=== PATIENT | female | born 1995 | race African-American/Black ===

== ENCOUNTER 2018-10-14 14:50 | Inpatient (IN) | payer OTHER ==
[2018-10-14] VITALS (29 sets, daily range): BP systolic 120–164; BP diastolic 70–102
[~2018-10-14] VITALS: Ht 170.2 cm; Wt 89.1 kg
[2018-10-14] MEDS ORDERED: PRENTAB9 PO (15:13)
[2018-10-14] MEDS: LR 1,000 ML IV SCH ×3 (16:06→23:42)
[2018-10-14] MEDS ORDERED: LR 1,000 ML IV SCH (16:06)
[2018-10-14] MEDS ORDERED: LACTATED RINGER'S 1000 ML IV STA (16:06)
[2018-10-14] MEDS ORDERED: OXYTOCIN DRIP 30 UNITS in APPROPRIATE DILUENT 1 EA IV SCH (16:15)
--- NOTE | 2018-10-14 16:31 | HPEPDOC ---
Obstetrical History & Physical General Date of Admission Oct 14, 2018 at 14:51 History of Present Illness 22 y/o at 39+2 with newly dx'd Pre-E today. 24 hr UP showed 754 mg. [place] thiago BP's noted 24 and 28JAN. Preg uncomplicated. Pos FM. Not feeling any ctx's. No GASTON/vis changes/upper abdom pain. 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: No pertinent history Past Medical History Medical History denies Surgical History: [place] teeth Family History Significant Family History: No pertinent family hx Social History Marital Status: Family situation: Spouse/partner home Psychosocial History: No pertinent psych hx * Smoker: non-smoker Alcohol: Denies Drugs: denies Abuse Violence Screening Have you been hit/kicked/slapp: No Have you been sexually assault: No Imunizations Tdap status: current Influenza Status: current Allergies Coded Allergies: No Known Allergies (Unverified , 10/14/18) Medications Scheduled Multivitamins/ ( 27-0.8 mg) 1 Tab Tab, 1 TAB PO DAILY Physical Examination Physical Examination GENERAL: Alert and oriented times three ABDOMEN: Gravid and non-tender to touch. FETUS: Is vertex (VTX) by sterile vaginal examination (SVE), Cx FT/50/high/vtx ballotable EXTREMITIES: No edema. Vital Signs/I&O Vital Signs Date Time Temp Pulse Resp B/P (MAP) Pulse Ox O2 Delivery O2 Flow Rate FiO2 10/14/18 15:38 60 144/89 (107) 10/14/18 15:09 97.9 18 Room Air Laboratory Data 24H LABS Laboratory Tests 2 10/14/18 15:03: Serology Scanned Report Hepatitis B Testing Urine Culture: No Growth Pertinent Laboratoy Data Blood Type: O+ RBC Antibody Screen: Negative HIV: Negative Hepatitis B: Negative Hepatitis C: Unknown Rapid Plasma Reagin: Nonreactive Rubella: Immune Varicella: Immune Chlamydia/Gonorrhea: Negative Group B Streptococcus: Negative Quad Screen Test: Declined Cystic Fibrosis: Negative Anatomy Ultrasound Placenta Location: Anterior Normal Anatomy: Yes Placenta Previa: No Assessment Variability: Moderate Accelerations: Positive Decelerations: None Tocometer Contractions: Yes Frequency: regular Duration: greater than 60 seconds Strength: palpated as mild Assessment/Plan Assessment Term, pre-e, no severe features. Unfav cx, however stefanie too much to give miso. Also, a FB would not fit as of yet. Only option is pitocin. Plan Admit and orient. 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 Diet: clears Group B Streptococcus (GBS) neg Labs and intravenous (IV) per unit protocol. Counseled on Pitocin and induction of labor (IOL). Lactated Ringers (LR): Bolus 1000 mL prior to epidural, then at 125 mL/hr. Anticipate normal spontaneous delivery () C-S as appropriate. Sessions SESSIONS,KAVITA Kinsey MD Oct 14, 2018 16:31
[2018-10-14 16:39] LABS: HEMATOCRIT 36.2 % (36.0-47.0); MEAN CORPUSCULAR HEMOGLOBIN 28.9 pg (27.0-33.0); MEAN CORPUSCULAR HGB CONC 33.1 g/dl (32.0-36.5); MEAN CORPUSCULAR VOLUME 87.2 fl (80.0-96.0); PLATELET COUNT, AUTOMATED 231 10^3/uL (150-450); RED BLOOD COUNT 4.15 10^6/uL (4.00-5.40); WHITE BLOOD COUNT 10.2 10^3/uL (4.0-10.0)
[2018-10-14 17:00] LABS: ALT/SGPT 25 U/L (12-78); BILIRUBIN,TOTAL 0.1 MG/DL (0.2-1.0); CREATININE FOR GFR 0.85 MG/DL (0.55-1.30); GLOMERULAR FILTRATION RATE > 60.0 (>60); LDH LACTATE DEHYDROGENASE 231 U/L (84-246); URIC ACID 4.6 MG/DL (2.6-6.0)
[2018-10-14] MEDS ORDERED: NIFEdipine 10 MG CAP PO STA (18:50)
[2018-10-14] MEDS ORDERED: NIFEdipine 10 MG CAP As Ordered ONE (18:53)
--- NOTE | 2018-10-14 21:33 | IPNPDOC ---
Text Note Date of Service The patient was seen on 10/14/18. NOTE Has required a single dose of Nifedipine 10 mg for BP control. Mild range for several hours since. Nl serum labs. NST Cat 2 with intermittent lates but mod josé antonio and pos accels throughout, reg ctx's that she is now feeling 4/10, pit at 2 mu/min Cx 60/-3/mid/vtx well applied, Cook balloon 60 Ut/40 Vag placed w/o difficulty Plan on recheck 1-2 hrs after Cook come out. Epidural on demand, prefer to wait until active labor. Pt states no questions after disc of plan. Sessions VS,Yamileth, I+O VS, Yamileth I+O Laboratory Tests 10/14/18 16:25 Aspartate Amino Transf (AST/SGOT) 16, Alanine Aminotransferase (ALT/SGPT) 25, La ctate Dehydrogenase 231, Total Bilirubin 0.1 L, Uric Acid 4.6 10/14/18 16:26 Red Blood Count 4.15, Mean Corpuscular Volume 87.2, Mean Corpuscular Hemoglobin 28.9, Mean Corpuscular Hemoglobin Concent 33.1, Red Cell Distribution Width 13.6 Vital Signs Date Time Temp Pulse Resp B/P (MAP) Pulse Ox O2 Delivery O2 Flow Rate FiO2 10/14/18 20:32 56 18 131/83 (99) 10/14/18 19:16 98.1 10/14/18 15:09 Room Air SESSIONS,KAVITA Kinsey MD Oct 14, 2018 21:33
[2018-10-15] VITALS (69 sets, daily range): BP systolic 101–170; BP diastolic 57–98
[2018-10-15] MEDS: LR 1,000 ML IV SCH ×3 (04:03→17:13)
[2018-10-15 05:36] LABS: HEMATOCRIT 34.3 % (36.0-47.0); HEMOGLOBIN 11.3 g/dl (12.0-15.5); MEAN CORPUSCULAR HEMOGLOBIN 28.7 pg (27.0-33.0); MEAN CORPUSCULAR HGB CONC 32.9 g/dl (32.0-36.5); MEAN CORPUSCULAR VOLUME 87.1 fl (80.0-96.0); PLATELET COUNT, AUTOMATED 204 10^3/uL (150-450); RED BLOOD COUNT 3.94 10^6/uL (4.00-5.40); WHITE BLOOD COUNT 11.8 10^3/uL (4.0-10.0)
[2018-10-15 06:01] LABS: ALT/SGPT 19 U/L (12-78); BILIRUBIN,TOTAL 0.3 MG/DL (0.2-1.0); GLOMERULAR FILTRATION RATE > 60.0 (>60); LDH LACTATE DEHYDROGENASE 202 U/L (84-246); URIC ACID 4.7 MG/DL (2.6-6.0)
[2018-10-15] MEDS ORDERED: NIFEdipine 10 MG CAP PO ONE ×2 (08:30→21:30)
--- NOTE | 2018-10-15 08:45 | IPNPDOC ---
Text Note Date of Service The patient was seen on 10/15/18. NOTE Accepting care of Ms. Mane. 23 yo at 39+3 weeks admitted yesterday afternoon for an IOL for pre eclampsia without severe features. BPs have mostly been mild range overnight, though she received one dose of nifedipine. Toxemia labs normal. She has no symptoms. She had a cook balloon placed at ~2130 last night and pitocin was initiated. She had a periodic Cat II tracing, and ultimately pitocin was stopped this morning due to late decels. Since it was stopped, FHR has been Cat I with +accels. Cook balloon removed on exam with gentle traction and desufflation of the bulb. Cervix: 3/80/-2. Plan to restart pitocin now and closely monitor tolerance to labor. Epidural if and when desired. All patient questions answered. Brianne Dorman DO VS,Yamileth, I+O VS, Yamileth, I+O Laboratory Tests 10/14/18 16:25 Aspartate Amino Transf (AST/SGOT) 16, Alanine Aminotransferase (ALT/SGPT) 25, Lactate Dehydrogenase 231, Total Bilirubin 0.1 L, Uric Acid 4.6 10/14/18 16:26 Red Blood Count 4.15, Mean Corpuscular Volume 87.2, Mean Corpuscular Hemoglobin 28.9, Mean Corpuscular Hemoglobin Concent 33.1, Red Cell Distribution Width 13.6 10/15/18 05:23 Aspartate Amino Transf (AST/SGOT) 15, Alanine Aminotransferase (ALT/SGPT) 19, Lactate Dehydrogenase 202, Total Bilirubin 0.3 #, Uric Acid 4.7, Red Blood Count 3.94 L, Mean Corpuscular Volume 87.1, Mean Corpuscular Hemoglobin 28.7, Mean Corpuscular Hemoglobin Concent 32.9, Red Cell Distribution Width 13.5 Vital Signs Date Time Temp Pulse Resp B/P (MAP) Pulse Ox O2 Delivery O2 Flow Rate FiO2 10/15/18 08:15 56 164/88 (113) 10/15/18 07:33 97.2 10/15/18 07:02 18 10/14/18 15:09 Room Air I&O- Last 24 Hours up to 6 AM 10/15/18 06:00 Intake Total 3385 ml Output Total 2750 ml Balance 635 ml BRIANNE DORMAN 29, 2019 08:45
[2018-10-15] MEDS ORDERED: ACETAMINOPHEN 500 MG TAB PO ONE (09:30)
--- NOTE | 2018-10-15 14:06 | IPNPDOC ---
Text Note Date of Service The patient was seen on 10/15/18. NOTE Patient feeling significantly increased pain and pressure. Blood pressures remain stable at normal to only mildly elevated. Cervix: 4/80/-1. head well engaged. AROM performed productive of meconium stained fluid. FHR: Cat I tracing, early decels, moderate variability. Pitocin at 4mU. Contractions in good pattern. She is considering an epidural. Continue with pitocin. Safe to proceed. Brianne Dorman DO VS,Yamileth I+O VS, Yamileth I+O Laboratory Tests 10/14/18 16:25 Aspartate Amino Transf (AST/SGOT) 16, Alanine Aminotransferase (ALT/SGPT) 25, Lactate Dehydrogenase 231, Total Bilirubin 0.1 L, Uric Acid 4.6 10/14/18 16:26 Red Blood Count 4.15, Mean Corpuscular Volume 87.2, Mean Corpuscular Hemoglobin 28.9, Mean Corpuscular Hemoglobin Concent 33.1, Red Cell Distribution Width 13.6 10/15/18 05:23 Aspartate Amino Transf (AST/SGOT) 15, Alanine Aminotransferase (ALT/SGPT) 19, Lactate Dehydrogenase 202, Total Bilirubin 0.3 #, Uric Acid 4.7, Red Blood Count 3.94 L, Mean Corpuscular Volume 87.1, Mean Corpuscular Hemoglobin 28.7, Mean Corpuscular Hemoglobin Concent 32.9, Red Cell Distribution Width 13.5 Vital Signs Date Time Temp Pulse Resp B/P (MAP) Pulse Ox O2 Delivery O2 Flow Rate FiO2 10/15/18 10:47 59 133/80 (97) 10/15/18 09:21 98.0 18 10/14/18 15:09 Room Air I&O- Last 24 Hours up to 6 AM 10/15/18 06:00 Intake Total 3385 ml Output Total 2750 ml Balance 635 ml BRIANNE DORMAN DO Oct 15, 2018 14:06
[2018-10-15] MEDS ORDERED: FENTANYL 2MCG/ML ROPIVACAINE 0.2% IN 0.9% NACL 100ML IVBAG As Ordered ONE (14:28)
[2018-10-15] MEDS ORDERED: ePHEDrine SULFATE 25 MG/5 ML(5MG/ML) SYRINGE IV PRN (15:45)
[2018-10-15] MEDS ORDERED: REFRIGERATOR IV KEYS XX PRN (15:45)
[2018-10-15] MEDS ORDERED: NALOXONE INJ 0.4 MG/1 ML VIAL (J2310) IV PRN ×3 (15:45→18:27)
[2018-10-15] MEDS ORDERED: EPIDURAL COMMENT XX SCH (15:45)
[2018-10-15] MEDS ORDERED: LACTATED RINGER'S 1000 ML IV PRN (15:45)
[2018-10-15] MEDS ORDERED: diphenhydrAMINE INJ 50MG/ML VIAL (J1200) IV PRN ×2 (15:45→18:27)
[2018-10-15] MEDS ORDERED: FENTANYL/ROPIVACAINE/NACL BAG 100 ML EPIDURAL SCH (15:45)
[2018-10-15] MEDS ORDERED: EPIDURAL/PCA KEYS XX PRN (15:45)
[2018-10-15] MEDS ORDERED: ONDANSETRON 4MG/2ML VIAL (J2405) IV PRN ×4 (15:45→19:15)
[2018-10-15] MEDS ORDERED: AZITHROMYCIN INJ 500 MG, VIAL MATE ADAPTER 1 EACH in D5W 250 ML IV ONE (17:30)
[2018-10-15] MEDS ORDERED: BICITRA 30ML SOLN UDC As Ordered ONE (17:33)
--- NOTE | 2018-10-15 17:38 | IPNPDOC ---
Text Note Date of Service The patient was seen on 10/15/18. NOTE Repetitive late decels, despite pitocin only being at 4mU. Cervix: 4/50/-1. Cervix swollen. FHR Cat II. Ms. Mane's baby has had persistent decelerations with pitocin augmentation and she has made no further cervical change. I recommended section for inability to augment labor, remote from delivery. We discussed all risks of surgery to include, but not limited to, bleeding requiring blood transfusion, risk of infection, risk of injury to bowel, bladder, or other structures which could require additional surgery, risk of injury to baby, and even risk of and/or maternal . She verbalized understanding and elected to proceed. Ancef and azithromycin for surgical prophylaxis. Anesthesia notified. Brianne Dorman DO VS,Yamileth, I+O VSYamileth I+O Laboratory Tests 10/15/18 05:23 Red Blood Count 3.94 L, Mean Corpuscular Volume 87.1, Mean Corpuscular Hemoglobin 28.7, Mean Corpuscular Hemoglobin Concent 32.9, Red Cell Distribution Width 13.5, Aspartate Amino Transf (AST/SGOT) 15, Alanine Aminotransferase (ALT/SGPT) 19, Lactate Dehydrogenase 202, Total Bilirubin 0.3 #, Uric Acid 4.7 Vital Signs Date Time Temp Pulse Resp B/P (MAP) Pulse Ox O2 Delivery O2 Flow Rate FiO2 10/15/18 17:01 53 18 166/88 (114) 10/15/18 16:29 97.9 10/14/18 15:09 Room Air I&O- Last 24 Hours up to 6 AM 10/15/18 05:59 Intake Total 3385 ml Output Total 2750 ml Balance 635 ml BRIANNE DORMAN DO Oct 15, 2018 17:38
[2018-10-15] MEDS ORDERED: AZITHROMYCIN INJ 500MG VIAL (J0456) As Ordered ONE (17:39)
[2018-10-15] MEDS ORDERED: BICITRA 30ML SOLN UDC PO ONE (17:45)
[2018-10-15] MEDS ORDERED: ONDANSETRON 4MG/2ML VIAL (J2405) As Ordered ONE (18:24)
[2018-10-15] MEDS ORDERED: OXYTOCIN INJ 10 UNITS/ML VIAL (J2590) As Ordered ONE (18:24)
[2018-10-15] MEDS ORDERED: MORPHINE PRES-FREE INJ 10 MG/10 ML VIAL (J2274) As Ordered ONE (18:25)
[2018-10-15] MEDS ORDERED: NALBUPHINE HCL 10 MG/ML AMP (J2300) IV PRN ×2 (18:27→19:15)
[2018-10-15] MEDS ORDERED: METOCLOPRAMIDE INJ 10MG/2ML VIAL (J2765) IV PRN (18:27)
[2018-10-15] MEDS ORDERED: METOCLOPRAMIDE INJ 10MG/2ML VIAL (J2765) As Ordered ONE (18:30)
[2018-10-15] MEDS ORDERED: FAMOTIDINE INJ 20MG/2ML VIAL (S0028) As Ordered ONE (18:30)
[2018-10-15 18:42] LABS: CORD GAS ABE V -0.7; CORD GAS HCO3 V 25.7 MEQ/L; CORD GAS PCO2 V 47.9 mmHg; CORD GAS PH V 7.347 UNITS; CORD GAS PO2 V 32.9 mmHg; CORD GAS SBC V 23.2 MEQ/L; CORD GAS TCO2 V 27.1 MEQ/L
[2018-10-15 18:46] LABS: CORD GAS ABE A -0.2; CORD GAS HCO3 A 28.2 MEQ/L; CORD GAS O2 SAT A 15.6 %; CORD GAS PCO2 A 60.6 mmHg; CORD GAS PH A 7.286 UNITS; CORD GAS PO2 A 10.9 mmHg; CORD GAS TCO2 A 30.1 MEQ/L
[2018-10-15] MEDS ORDERED: OXYTOCIN DRIP 30 UNITS in APPROPRIATE DILUENT 1 EA IV SCH (18:52)
[2018-10-15] MEDS ORDERED: RHOGAM 300 MCG (1500 IU) INJ (J2790) IM SCH (19:00)
[2018-10-15] MEDS ORDERED: PERCOCET 5MG/325MG TAB PO PRN ×2 (19:00)
[2018-10-15] MEDS ORDERED: MEASLES,MUMPS,RUBELLA VACCINE INJ (MMR-II) (90707) SC SCH (19:00)
[2018-10-15] MEDS ORDERED: DOCUSATE SODIUM 100 MG CAP PO PRN (19:00)
[2018-10-15] MEDS ORDERED: KETOROLAC 30 MG/ML VIAL (J1885) IV PRN (19:15)
[2018-10-15] MEDS ORDERED: MEPERIDINE INJ 25 MG/ML VIAL (J2175) IV PRN (19:15)
[2018-10-15] MEDS ORDERED: LR 1,000 ML IV SCH (19:15)
[2018-10-15] MEDS ORDERED: fentaNYL 100 MCG/2 ML INJECTION (J3010) IV PRN (19:15)
[2018-10-15] MEDS ORDERED: OXYTOCIN 30 UNITS IN 0.9% NaCl 500ML IV BAG (J2590) As Ordered ONE (19:31)
[2018-10-15] MEDS ORDERED: KETOROLAC 30 MG/ML VIAL (J1885) As Ordered ONE (20:33)
[2018-10-15] MEDS: KETOROLAC 30 MG/ML VIAL (J1885) IV SCH (20:43)
[2018-10-16] VITALS (8 sets, daily range): BP systolic 121–160; BP diastolic 75–95
[2018-10-16] MEDS: KETOROLAC 30 MG/ML VIAL (J1885) IV SCH ×3 (02:44→15:00)
[2018-10-16] MEDS: LABETALOL 200 MG TAB PO SCH ×2 (06:51→18:29)
[2018-10-16 06:54] LABS: HEMOGLOBIN 9.9 g/dl (12.0-15.5); MEAN CORPUSCULAR HEMOGLOBIN 29.3 pg (27.0-33.0); MEAN CORPUSCULAR VOLUME 88.8 fl (80.0-96.0); PLATELET COUNT, AUTOMATED 199 10^3/uL (150-450); RED BLOOD COUNT 3.38 10^6/uL (4.00-5.40); WHITE BLOOD COUNT 12.5 10^3/uL (4.0-10.0)
--- NOTE | 2018-10-16 07:41 | IPNPDOC ---
Progress Note Date of Service: Oct 16, 2018 Progress Note Umair is a 23 yo G1 now P1 who underwent an uncomplicated PLTCS yesterday afternoon/evening for NRFHT/inability to augment labor after being admitted for an IOL for pre eclampsia. she reports feeling well this AM. She has some abdominal soreness but otherwise feels well. She denies any fevers/chills, SOB, chest pain. She has ambulated and is tolerating a regular diet. She denies any headaches, RUQ pain, visual changes, or SOB. Vitals - Mildly elevated BPs, afebrile, non tachycardic General - AAOX3, laying in bed, NAD CV - RRR Abdomen - Fundus firm at U-1. Abdomen appropriately tender to palpation. Bandage removed and incision clean/dry/intact. Extremities - No edema UO - excellent, >100ml/hr over last several hours Labs: Pre op H/H 11.3/34.3 --> post op H/H this AM 9.9/30.0 Umair is doing well and is making an appropriate post op recovery. Continue to encourage ambulation, , and IS use. Remove vidales later today and monitor for DTV. Continue current pain regimen. Started 200mg BID labetalol for BP control. SHe is asymptomatic this morning. Continue routine care. Anticipate discharge home either tomorrow or the day after. Brianne Dorman, VS, I&O, 24H, Yamileth Vital Signs/I&O Vital Signs Date Time Temp Pulse Resp B/P (MAP) Pulse Ox O2 Delivery O2 Flow Rate FiO2 10/16/18 06:51 68 135/84 10/16/18 05:37 97.4 17 98 Room Air I&O- Last 24 Hours up to 6 AM 10/16/18 06:00 Intake Total 2809.1 ml Output Total 3925 ml Balance -1115.9 ml Laboratory Data 24H LABS Laboratory Tests 2 10/15/18 18:32: Cord Arterial Blood pH 7.286, Cord Arterial Blood PCO2 60.6, Cord Arterial Blood PO2 10.9, Cord Arterial Blood HCO3 28.2, Cord Arterial Blood Total CO2 30.1, Cord Arterial Blood Base Excess -0.2, Cord Arterial Base Excess (Standard 22.0, Cord Arterial Bld Oxygen Saturation 15.6, Cord Venous Blood pH 7.347, Cord Venous Blood PCO2 47.9, Cord Venous Blood PO2 32.9, Cord Venous Blood HCO3 25.7, Cord Venous Blood Total CO2 27.1, Cord Venous Base Excess (Actual) -0.7, Cord Venous Base Excess (Standard) 23.2, Cord Venous Blood Oxygen Saturation 73.0 10/16/18 06:42: Nucleated Red Blood Cells % (auto) 0.0 CBC/BMP Laboratory Tests 10/16/18 06:42 Red Blood Count 3.38 L, Mean Corpuscular Volume 88.8, Mean Corpuscular Hemoglobin 29.3, Mean Corpuscular Hemoglobin Concent 33.0, Red Cell Distribution Width 13.6 BRIANNE DORMAN DO Oct 16, 2018 07:41
[2018-10-16] MEDS: PRENATAL VITAMINS CHEWABLE TABLET PO SCH (08:40)
--- NOTE | 2018-10-16 08:42 | RO ---
DATE OF PROCEDURE: 10/15/2018 PREOPERATIVE DIAGNOSES: Induction of labor for preeclampsia and persistent category 2 tracing, remote from delivery, with inability to augment labor. POSTOPERATIVE DIAGNOSES: Induction of labor for preeclampsia and persistent category 2 tracing, remote from delivery, with inability to augment labor, bandolier cord and infant in straight OP position. PROCEDURE: Primary low transverse section. SURGEON: Eleuterio Dorman DO GREASER AND OILER: Cathy Christine MD ANESTHESIA: Epidural. FLUIDS: 1 liter Lactated Ringer's. URINE OUTPUT: 300 mL via [place]. ESTIMATED BLOOD LOSS: 500 mL. COMPLICATIONS: None. PREOPERATIVE ANTIBIOTICS: Ancef and azithromycin. DETAILED PROCEDURE DESCRIPTION: The risks, benefits, indications and alternatives of the procedure were reviewed with the patient and informed consent was obtained. The patient was taken to the operating room where epidural anesthesia was found to be adequate. She was then prepped and draped in the usual sterile fashion in the dorsal supine position with a leftward tilt. A surgical time out was then performed and the patient's identity and planned procedure were verified with the operative team. A Pfannenstiel skin incision was then made with a scalpel and carried through to the underlying layer of fascia. The fascia was incised in the midline and the incision was extended laterally with the Vergara scissors. The superior aspect of the fascial incision was grasped with Macario clamps, elevated and the underlying rectus muscles were dissected off with the scalpel. Attention was then turned to the inferior aspect of this incision, which in a similar fashion was grasped, tented up with the Macario clamps and the rectus muscles were dissected off with Vergara scissors. The rectus muscles were then at the midline. The peritoneum was identified and entered digitally. The peritoneal incision was then extended horizontally and superiorly with good visualization of the bladder. A bladder blade was then inserted into the abdomen. The vesicouterine peritoneum was then identified and entered sharply with a scalpel. This incision was then extended laterally and a bladder flap was created digitally. Next, the lower uterine segment was incised in a transverse fashion with the scalpel. The uterine incision was then extended manually. Thick meconium stained fluid was noted upon entry into the uterus. The infant was found in straight OP position. The infant's head was then delivered atraumatically through the hysterotomy site without difficulty followed by the remainder of the body. A bandolier cord was delivered through and reduced manually. The cord was then doubly clamped and cut. The was handed off to the awaiting pediatricians. Cord gases were then obtained. The placenta was then removed manually and the uterus was then exteriorized and cleared of all clots and debris. The uterine incision was repaired with #0 Monocryl in a running locked fashion. The second layer of #0 Monocryl was then used to imbricate the hysterotomy site in a vertical fashion. Excellent hemostasis was achieved. The posterior cul-de-sac was then irrigated to good effect. The uterus was then returned to the abdomen and the hysterotomy was again inspected and found to be hemostatic. The pericolic gutters were then inspected and cleared of all clots and debris. The bladder blade was removed from the abdomen. The fascia was then reapproximated with #0 Vicryl suture in a running fashion. The subcutaneous fat was closed with #3-0 Vicryl suture in a running fashion. The skin was closed with #4-0 Monocryl suture in a subcuticular fashion. The incision was then dressed with Steri-Strips and a pressure dressing was applied. At the completion of the case, a bimanual exam was performed which revealed good uterine tone and minimal vaginal bleeding. The patient tolerated the procedure well. Sponge, lap, instrument and needle counts were correct times three. The patient was taken to the recovery room in stable condition. MARÍA
--- NOTE | 2018-10-16 08:52 | IPN ---
DATE OF SERVICE: 10/16/2018 This patient and requested circumcision of their male . After discussing the risks and benefits of circumcision, medical and nonmedical indications, penile block and aftercare, expressed understanding penile block, aftercare and bleeding, signed consent form. We await the clearance by the artillery meteorological man. All questions were answered. 20-minute discussion.
[2018-10-16] MEDS: IBUPROFEN 800 MG TAB PO SCH (22:49)
[2018-10-17 02:49] VITALS: BP 140/94
[2018-10-17] MEDS: IBUPROFEN 800 MG TAB PO SCH (06:34)
[2018-10-17 06:36] VITALS: BP 106/65
[2018-10-17] MEDS: LABETALOL 200 MG TAB PO SCH (06:36)
[2018-10-17 06:44] VITALS: BP 106/65
--- NOTE | 2018-10-17 08:04 | DS.PDOC ---
Discharge Summary General Date of Admission Oct 14, 2018 at 14:51 Date of Discharge Discharge Summary ADMITTING DIAGNOSES: Induction pre-eclampsia DISCHARGE DIAGNOSES: Same, Primary delivery HOSPITAL COURSE: Admitted and labor complicated by arrest disorder. Had an uncomplicated low-transverse . course uncomplicated. DISCHARGE MEDICATIONS: Motrin, Lanolin, Colace, Percocet DISCHARGE INSTRUCTIONS: Nothing in the vagina for 6 weeks. No driving for 2 weeks. No immersion of incision in dirty water for 4 weeks. F/U in OBGYN clinic 1-[address] Sessions and in 6-8 weeks. Sessions Vital Signs/I&Os Vital Signs Date Time Temp Pulse Resp B/P (MAP) Pulse Ox O2 Delivery O2 Flow Rate FiO2 10/17/18 06:44 96.6 77 16 106/65 (79) 10/16/18 22:43 98 10/16/18 05:37 Room Air I&O- Last 24 Hours up to 6 AM 10/17/18 06:00 Output Total 1850 ml Balance -1850 ml Discharge Medications Scheduled Multivitamins/ ( 27-0.8 mg) 1 Tab Tab, 1 TAB PO DAILY, (Reported) Allergies Coded Allergies: No Known Allergies (Unverified , 10/14/18) SESSIONS,KAVITA Kinsey MD Oct 17, 2018 08:04
--- NOTE | 2018-10-17 08:12 | IPNPDOC ---
Text Note Date of Service The patient was seen on 10/17/18. NOTE Umair is a 23 yo G1 now P1 who underwent an uncomplicated PLTCS 2 days ago for NRFHT/inability to augment labor after being admitted for an IOL for pre eclampsia. she reports feeling well this AM. She has some abdominal soreness but otherwise feels well. She denies any fevers/chills, SOB, chest pain. She has ambulated and is tolerating a regular diet. She denies any headaches, RUQ p ain, visual changes, or SOB. Vitals - Mildly elevated BPs, afebrile, non tachycardic General - AAOX3, laying in bed, NAD CV - RRR Abdomen - Fundus firm at U-2. Abdomen appropriately tender to palpation. incision clean/dry/intact. Extremities - No edema UO - excellent, >100ml/hr over last several hours Labs: Pre op H/H 11.3/34.3 --> post op H/H this AM 9.9/30.0 Umair is doing well and is making an appropriate post op recovery. Continue to encourage ambulation, , and IS use. Remove vidales and monitor for DTV. Continue current pain regimen. Started 200mg BID labetalol for BP control. SHe is asymptomatic this morning. Continue routine care. Anticipate discharge home later today. Sessions Yamileth TEIXEIRA, I+O Yamileth CHAVEZ I+O Vital Signs Date Time Temp Pulse Resp B/P (MAP) Pulse Ox O2 Delivery O2 Flow Rate FiO2 10/17/18 06:44 96.6 77 16 106/65 (79) 10/16/18 22:43 98 10/16/18 05:37 Room Air I&O- Last 24 Hours up to 6 AM 10/17/18 06:00 Output Total 1850 ml Balance -1850 ml KAVITA CAT MD Oct 17, 2018 08:12
[2018-10-17] MEDS ORDERED: COLA100C5 PO (09:04)
[2018-10-17] MEDS ORDERED: LABE20TAB PO (09:04)
[2018-10-17] MEDS ORDERED: IBUP-1114 PO (09:04)
[2018-10-17] MEDS ORDERED: OXYC1TAB23 PO (09:04)
[2018-10-17] MEDS: PRENATAL VITAMINS CHEWABLE TABLET PO SCH (10:33)
== END 2018-10-17 17:30 | disposition home or self-care (01) | DRG 773 ==
LOC: M LDO 14:50 → M LDI 14:51 → M OBS 10-15 21:08
PROVIDERS: ADMIT Obstetrics & Gynecology; ATTEND Obstetrics & Gynecology
PROC: 3E033VJ Introduction of Other Hormone into Peripheral Vein, Percutaneous Approach (ICD-10-PCS; 2018-10-14)
PROC: 10907ZC Drainage of Amniotic Fluid, Therapeutic from Products of Conception, Via Natural or Artificial Opening (ICD-10-PCS; 2018-10-15)
PROC: 10D00Z1 Extraction of Products of Conception, Low, Open Approach (ICD-10-PCS; principal; 2018-10-15 17:59)
DX: O14.04 Mild to moderate pre-eclampsia, complicating childbirth (principal); Z3A.39 39 weeks gestation of pregnancy; O76 Abnormality in fetal heart rate and rhythm complicating labor and delivery; O77.0 Labor and delivery complicated by meconium in amniotic fluid; O69.81X0 Labor and delivery complicated by cord around neck, without compression, not applicable or unspecified; Z37.0 Single live birth